=== PATIENT | male | born 1980 | race Caucasian/White ===

== ENCOUNTER 2023-04-28 09:08 | Emergency (ER) | payer MEDICAID ==
[~2023-04-28] VITALS: Ht 185.4 cm; Wt 113.0 kg
[2023-04-28] MEDS ORDERED: famotidine 20mg tablet PO ONE (10:15)
[2023-04-28] MEDS ORDERED: diphenhydrAMINE 25mg capsule PO ONE (10:15)
[2023-04-28] MEDS ORDERED: predniSONE 20 mg tablet PO ONE (10:15)
[2023-04-28] MEDS ORDERED: DIPH25CA83 PO (10:17)
[2023-04-28] MEDS ORDERED: FAMO-128 PO (10:17)
[2023-04-28] MEDS ORDERED: PRED20TA PO (10:17)
[2023-04-28 10:45] VITALS: BP 149/98
== END 2023-04-28 10:53 | disposition home or self-care (01) ==
LOC: ER 09:08
DX: L23.7 Allergic contact dermatitis due to plants, except food (principal); R51.9 Headache, unspecified; Z79.899 Other long term (current) drug therapy
CPT/HCPCS: 99284; J7512; Q0163